=== PATIENT | female | born 1975 | race African-American/Black ===

== ENCOUNTER 2017-03-04 14:12 | Emergency (ER) | payer BC ==
[~2017-03-04] VITALS: Ht 157.5 cm; Wt 79.8 kg
[~2017-03-04 14:12] MED LIST: AMOXICOT500 M1 PO; FLEXERIL10 MG PO; MOTRIN600 M1 PO; NOMEDS XX; PREDNISONE 20MG20 MG PO; TESSALON PERLE100 MG PO; VICOPROFEN 7.51 TAB PO; ZITHROMAX Z-PA250 M1 PO
--- OUTSIDE RECORDS SUMMARY | 2017-03-04 14:22 | External Medical Summary Rpt | CCD ---
Author Author , CYNTHIA MARIE Address Unknown Phone [email or web address] Care Team Providers Care Librarian Name Role Phone Rhiannon Beltran MD, Unavailable Unavailable Rhiannon Beltran MD Purpose Continuity of Care Document - 10-10-2012 through 2016 Problems Code Diagnosis DOS Provider Status 493.90 493.90 05-05-2013 [facility] [phone] 10-11-2012 [facility] Allergies, Adverse Reactions, Alerts Type Allergy to substance Adverse Reaction to Substance Substance Reaction Severity NO KNOWN ALLERGIES Unknown Unknown Medications Na ND Rx Da Fi Fi Am Da Di Ph RX Ph St me C No te ll ll ou ys ag ar # ys at rm s nt no ma ic us Or Da si cy ia de te s n re d VE 00 01 0 No NT 17 -1 OL 30 2- Lo IN 68 20 ng 22 14 er HF 4 A Ac 90 ti ve MC G IN SMITH LE R Ae 08 01 0 No ro 37 -1 ch 30 2- Lo am 76 20 ng be 50 14 er r/ 0 Op Ac ti ti smith ve le r RI 00 01 0 No ED 05 -1 NI 40 2- Lo SO 01 20 ng NE 82 14 er 0 20 Ac ti MG ve TA BL ET RI 00 06 0 No ED 05 -2 NI 40 0- Lo SO 01 20 ng NE 82 13 er 0 20 Ac ti MG ve TA BL ET AC 51 06 0 No ET 07 -2 AM 90 0- Lo IN 16 20 ng OP 19 13 er HE 9H N Ac W/ ti CO ve DE IN E #3 TA K Vital Signs 05-05-2013 23:52 Name Value Interpretat Reference Comment ion Range Body 98.2 [degF] Temperature BP 81 mm[Hg] Diastolic BP Systolic 131 mm[Hg] Heart 89 /min Rate/Pulse O2% 95 % Respiratory 21 /min Rate 05-05-2013 23:32 Name Value Interpretat Reference Comment ion Range BP 87 mm[Hg] Diastolic BP Systolic 136 mm[Hg] Heart 85 /min Rate/Pulse Respiratory 20 /min Rate 05-05-2013 22:48 Name Value Interpretat Reference Comment ion Range O2% 98 % 10-11-2012 00:13 Name Value Interpretat Reference Comment ion Range Body 98.3 [degF] Temperature BP 87 mm[Hg] Diastolic BP Systolic 130 mm[Hg] Heart 69 /min Rate/Pulse O2% 100 % Respiratory 18 /min Rate 10-11-2012 00:12 Name Value Interpretat Reference Comment ion Range Body 98.3 [degF] Temperature BP 87 mm[Hg] Diastolic BP Systolic 130 mm[Hg] Heart 69 /min Rate/Pulse O2% 100 % Respiratory 18 /min Rate Encounters Encounter Start End Date Code Location Performer Type Date Emergency JANNET Beltran MD (ER) 4 22:55 4 23:55 [facility] Emergency JANNET Beltran MD (ER) 3 23:30 3 00:13 [facility]
--- OUTSIDE RECORDS SUMMARY | 2017-03-04 14:22 | External Medical Summary Rpt | CCD ---
Author Author , CYNTHIA MARIE Address Unknown Phone [email or web address] Care Team Providers Care Certified Ophthalmic Technician Name Role Phone Rhiannon Beltran MD, Unavailable Unavailable Rhiannon Beltran MD Purpose Continuity of Care Document - 10-10-2012 through 2016 Problems Code Diagnosis DOS Provider Status 493.90 493.90 05-05-2013 [facility] [phone] 10-11-2012 [facility] Allergies, Adverse Reactions, Alerts Type Allergy [...] Ac ti ti smith ve le r PA 00 01 0 No ED 05 -1 NI 40 2- Lo SO 01 20 ng NE 82 14 er 0 20 Ac ti MG ve TA BL ET PA 00 06 0 No ED 05 -2 [...] Beltran MD (ER) 4 22:55 4 23:55 [facility] JANNET Beltran MD (ER) 3 23:30 3 00:13 [facility]
--- OUTSIDE RECORDS SUMMARY | 2017-03-04 14:23 | External Medical Summary Rpt | CCD ---
Author Author [facility] Organization [employer] Address Unknown Phone Unavailable Purpose Continuity of Care Document - through 2016
--- OUTSIDE RECORDS SUMMARY | 2017-03-04 14:23 | External Medical Summary Rpt | CCD ---
Demographics Preferred Language Icelandic Marital Status Unknown Protestant Affiliation Unknown Race Unknown Ethnic Group Unknown Author Author , CYNTHIA MARIE Address Unknown Phone Immunization No patient found.
--- OUTSIDE RECORDS SUMMARY | 2017-03-04 14:23 | External Medical Summary Rpt | CCD ---
Demographics Preferred Language Citizen Of [place] Marital Status Unknown Faith Affiliation Unknown Race Unknown Ethnic Group Unknown Author Author , CYNTHIA MARIE Address Unknown Phone Immunization No patient found.
--- NOTE | 2017-03-04 15:13 | Urgent Treatment Center Report ---
See Addendum History of Present Issue Date/Time Seen by Provider 03/04/17 1512 Visit Reason Pt arrived:Walked Presenting Problem:C/O EPIGASTRIC PAIN Location if Accident: Onset of symptoms date/time:/ or onset unknown for:MEDICAL HX UNKNOWN Have you (or family members/close friends) recently traveled outside the [place]? N If Yes, where/when: Have you had exposure to infectious disease within the past month? TB? Other? Specify: Source patient, RN notes reviewed Exam Limitations no limitations Comment Patient had fairly acute onset of epigastric pain a few hours [employer]. Started after drinking orange juice. History of PUD but hasn't had problems recently. Had an EGD a few years ago. States pain hasn't really relented any since onset. Went to eat lunch with family and decided to be evaluated instead. Denies fever. Denies nausea, vomiting or diarrhea. Denies chest pain or arm numbness. Denies neck pain. No diaphoresis or clamminess. Pain is constant, centralized. ALLERGIES Coded Allergies: No Known Allergies (03/04/17) Home Medications Active Scripts Amoxicillin (Amoxicot) 500 MG PO Q8 #30 CAP Prov: 10/10/14 Ibuprofen (Motrin) 600 MG PO Q6HP PRN PAIN #21 TAB Prov: 10/10/14 Reported Medications No Home Medications (NO HOME MEDICATIONS) 1 EACH XX ONCE History Medical History General CAD? No Angina: No VT: No Hypertension? No Hyperlipidemia? No CHF? No DVT? No PE? No COPD? No Asthma? Yes Anemia? No GERD? No Gastric ulcers? No GI Bleed? No Hernia? No Thyroid Problems? No Hypothyroidism? No CVA? No Seizures? No Diabetes? No Renal Insuffiency? No UTI? No Stones? No BPH? No GB Disease: No Nephritic Syndrome? No Asplenia? No Hepatitis? No Sickle Cell Disease? No Arthritis? No Migraines? No Cataracts? No Glaucoma? No MRSA? No HIV? No TB? No Anxiety? No Depression? No Cancer? No More? No Immunization HX DT/Tetanus > 10 Years Ago Surgical Hx Previous Surgery?Y X2 RECTAL SURGERY D & C TUBAL Family History Family HX Diabetes Yes CAD No Hypertension Yes Hyperlipidemia No Cancer No TB No Social History Smoking Hx Smoker: Never Smoker Tobacco: No Alcohol Alcohol: No Review of Systems All Other Systems Reviewed and Negative Gastrointestinal abdominal pain Physical Exam Vital Signs Vital Signs Date Time Temp Pulse Resp B/P Pulse O2 O2 Flow FiO2 Ox Delivery Rate 03/04 1501 98.1 76 20 130/90 98 General Appearance normal appearance, no apparent distress Ear, Nose, Throat hearing grossly normal, normal ENT inspection Respiratory Status No: respiratory distress, trachea midline, chest symmetrical. Lung Sounds bilateral: normal breath sounds, lungs clear. Cardiovascular normal exam, regular rate/rhythm, no peripheral edema, no gallop, no JVD, no murmur, no rub Gastrointestinal normal bowel sounds (epigastric tenderness), tenderness ( epigastric tenderness), epigastric tenderness without guarding; no RUQ tenderness Extremities non-tender, normal range of motion, normal inspection, normal capillary refill Neurologic alert, normal exam, oriented x 3 Mental status normal mood/affect Medical Decision Making LABS/Meds/Orders Pt receiving controlled substance in ED? No Results/Orders Current Medication Orders Sig/Felisha Start time Last Medication Dose Route Stop Time Status Admin Multi-Ingredient GI 60 ML ONCE ONE 03/04 1530 DC 03/04 Drug PO 03/04 1531 1533 Multi-Ingredient GI 0 .STK-MED ONE 03/04 1522 DC Drug PO Orders Procedure Date/time Status ELECTROCARDIOGRAM REQUEST 03/04 1521 Active CM/EKG CM/clerical warehouseman Rhythm Normal Sinus Rhythm Rate 73 Ectopy No Progress [facility] Progress Notes Date 03/04/17 Time 1540 Comment Some relief with GI cocktail, which she is sipping slowly Departure Departure Time of Disposition 1553 Disposition DC Home or Self Care(routine) Clinical Impression Primary Impression: Epigastric pain Condition STABLE Referrals Rudy VIEYRA,Adarsh (Family): 2 Days-Call Office Patient Instructions DI for Epigastric Pain Discharge Counseling Counseled pt/family regarding diagnosis, test results, medications/RX, home care, follow up needs Prescriptions Current Visit Scripts OMEPRAZOLE MAGNESIUM (Prilosec 20MG) 20 MG PO DAILY #30 TCP Sucralfate (Carafate Tab) 1 GM PO QID #20 TAB at 1601
--- NOTE | 2017-03-04 15:13 | Urgent Treatment Center Report ---
See Addendum History of Present Issue Date/Time Seen by Provider 03/04/17 1512 Visit Reason Pt arrived:Walked Presenting Problem:C/O EPIGASTRIC PAIN Location if Accident: Onset of symptoms date/time:/ or onset unknown for:MEDICAL HX UNKNOWN Have you (or family members/close friends) recently traveled outside the [place]? N If Yes, where/when: Have you had exposure to infectious disease within the past month? TB? Other? Specify: Source patient, RN notes reviewed Exam Limitations no limitations Comment Patient had fairly acute onset of epigastric pain a few hours [employer]. Started after drinking orange juice. History of PUD but hasn't had problems recently. Had an EGD a few years ago. States pain hasn't really relented any since onset. Went to eat lunch with family and decided to be evaluated instead. Denies fever. Denies nausea, vomiting or diarrhea. Denies chest pain or arm numbness. Denies neck pain. No diaphoresis or clamminess. Pain is constant, centralized. ALLERGIES Coded Allergies: No Known Allergies (03/04/17) Home Medications Active Scripts Amoxicillin (Amoxicot) 500 MG PO Q8 #30 CAP Prov: 10/10/14 Ibuprofen (Motrin) 600 MG PO Q6HP PRN PAIN #21 TAB Prov: 10/10/14 Reported Medications No Home Medications (NO HOME MEDICATIONS) 1 EACH XX ONCE History Medical History General CAD? No Angina: No IA: No Hypertension? No Hyperlipidemia? No CHF? No DVT? No PE? No COPD? No Asthma? Yes Anemia? No GERD? No Gastric ulcers? No GI Bleed? No Hernia? No Thyroid Problems? No Hypothyroidism? No CVA? No Seizures? No Diabetes? No Renal Insuffiency? No UTI? No Stones? No BPH? No GB Disease: No Nephritic Syndrome? No Asplenia? No Hepatitis? No Sickle Cell Disease? No Arthritis? No Migraines? No Cataracts? No Glaucoma? No MRSA? No HIV? No TB? No Anxiety? No Depression? No Cancer? No More? No Immunization HX DT/Tetanus > 10 Years Ago Surgical Hx Previous Surgery?Y X2 RECTAL SURGERY D & C TUBAL Family History Family HX Diabetes Yes CAD No Hypertension Yes Hyperlipidemia No Cancer No TB No Social History Smoking Hx Smoker: Never Smoker Tobacco: No Alcohol Alcohol: No Review of Systems All Other Systems Reviewed and Negative Gastrointestinal abdominal pain Physical Exam Vital Signs Vital Signs Date Time Temp Pulse Resp B/P Pulse O2 O2 Flow FiO2 Ox Delivery Rate 03/04 1501 98.1 76 20 130/90 98 General Appearance normal appearance, no apparent distress Ear, Nose, Throat hearing grossly normal, normal ENT inspection Respiratory Status No: respiratory distress, trachea midline, chest symmetrical. Lung Sounds bilateral: normal breath sounds, lungs clear. Cardiovascular normal exam, regular rate/rhythm, no peripheral edema, no gallop, no JVD, no murmur, no rub Gastrointestinal normal bowel sounds (epigastric tenderness), tenderness ( epigastric tenderness), epigastric tenderness without guarding; no RUQ tenderness Extremities non-tender, normal range of motion, normal inspection, normal capillary refill Neurologic alert, normal exam, oriented x 3 Mental status normal mood/affect Medical Decision Making LABS/Meds/Orders Pt receiving controlled substance in ED? No Results/Orders Current Medication Orders Sig/Felisha Start time Last Medication Dose Route Stop Time Status Admin Multi-Ingredient GI 60 ML ONCE ONE 03/04 1530 DC 03/04 Drug PO 03/04 1531 1533 Multi-Ingredient GI 0 .STK-MED ONE 03/04 1522 DC Drug PO Orders Procedure Date/time Status ELECTROCARDIOGRAM REQUEST 03/04 1521 Active CM/EKG CM/top distribution executive Rhythm Normal Sinus Rhythm Rate 73 Ectopy No Progress [facility] Progress Notes Date 03/04/17 Time 1540 Comment Some relief with GI cocktail, which she is sipping slowly Departure Departure Time of Disposition 1553 Disposition DC Home or Self Care(routine) Clinical Impression Primary Impression: Epigastric pain Condition STABLE Referrals Rudy VIEYRA,Adarsh (Family): 2 Days-Call Office Patient Instructions DI for Epigastric Pain Discharge Counseling Counseled pt/family regarding diagnosis, test results, medications/RX, home care, follow up needs Prescriptions Current Visit Scripts OMEPRAZOLE MAGNESIUM (Prilosec 20MG) 20 MG PO DAILY #30 TCP Sucralfate (Carafate Tab) 1 GM PO QID #20 TAB at 1601
[2017-03-04] MEDS ORDERED: CARAFATE 1GM TAB1 GM PO (16:01)
[2017-03-04] MEDS ORDERED: PRILOSEC20 M1 PO (16:01)
[2017-03-04 16:58] LABS: HEMOGLOBIN 12.4 g/dL (12.2-16.2); LYMPH # 2.8 K/mm3 (0.7-4.5); LYMPH % 17.8 % (10-50.0)
[2017-03-04 17:04] LABS: BUN 11 mg/dL (7-18)
[2017-03-04 17:10] LABS: URINE BILIRUBIN - DIPSTICK NEGATIVE (NEG); URINE BLOOD NEGATIVE (NEG)
[2017-03-04 17:17] LABS: GFR (ESTIMATED) 69 ML/MIN (59-)
[2017-03-04 17:18] LABS: AMPHETAMINES/METAMPHETAMINES NEGATIVE ng/mL (<1000)
[2017-03-04 17:43] LABS: NEUTROPHILS 78 % (42-76)
[2017-03-04] MEDS ORDERED: FLAGYL500 M1 PO (20:22)
[2017-03-04] MEDS ORDERED: ZANTAC 300300 M1 PO (20:22)
[2017-03-04] MEDS ORDERED: BENTYL10 M1 PO (20:22)
[2017-03-04 20:26] VITALS: BP 148/99
--- NOTE | 2017-03-05 06:39 | RADIOLOGY REPORT PS360 ---
CT ABD PELVIS W/ CONTRAST CLINICAL INDICATION: Upper abdominal pain with nausea and history of ulcers UPPER ABD PAIN ORDERING PHYSICIAN: Smita Ortiz MD PATIENT AGE: 41 years COMPARISON: None TECHNIQUE: Axial images obtained with sagittal and coronal reformats. PROCEDURE: Oral Contrast: None IV Contrast: 75 mL's of Isovue-370 . FINDINGS: There is a 5 mm isodensity in the right hepatic lobe anteriorly nonspecific too small to categorize, statistically probably benign. Follow-up may confirm. There is some minimal prominence of the central biliary radicles. No calcified gallstones are evident. There may be a small amount fluid medial to the gallbladder. Right upper quadrant ultrasound may be of further value. Spleen, adrenal glands, and pancreas are unremarkable. No renal calculi, hydronephrosis, or ureteral calculi are evident. Small isodense involving the lower pole the right kidney at 6 mm in may be due to small cyst the mid better evaluated with ultrasound. No evidence of appendicitis, intestinal obstruction, or free air. No evidence of diverticulitis. Uterus is enlarged with heterogeneous density of the uterine fundus consistent with fibroid involvement. The fundus of the uterus measures up to 7.7 X 6.9 x 6.4 cm. There is a mild amount colonic feces in the rectosigmoid region. No acute bony anomalies. IMPRESSION: 1. There may be some minimal fluid medial to the gallbladder and there is question of some minimal biliary dilatation. Consider gallbladder ultrasound for further evaluation. Bile duct does not appear distended. 2. Enlarged uterus consistent with fibroid involvement. 3. Nonspecific isodensity of the liver and right kidney possibly due to small cysts. Ultrasound may confirm 4. Moderate amount colonic feces in the rectosigmoid region.
== END 2017-03-04 20:27 | disposition home or self-care (01) ==
LOC: UTC 14:12 → ER 14:21 → UTC 14:21 → ER 20:27
PROVIDERS: Emergency Medicine
DX: R10.13 Epigastric pain (principal); J45.909 Unspecified asthma, uncomplicated
CPT/HCPCS: J1335; Q9967